=== PATIENT | male | born 1980 | race Caucasian/White ===

== ENCOUNTER → 2016-09-09 | Day surgery (SDC) | payer OTHER ==
[~2016-09-09] MED LIST: AMLO5TAB2 PO; BUPIVACAINE HCL PF 0.5% 30 ML VIAL ONE; CYCL5TAB PO; GABA300C5 PO; IBUP400T20 PO; LOSA25TA PO; MIDAZOLAM HCL 2 MG/2 ML VIAL IV ONE; MOBI15TA PO; PROPOFOL 200 MG/20 ML AMP IV ONE; TRIAMCINOLONE ACETONIDE 40 MG/ML VIAL I-ARTICULR ONE
--- NOTE | 2016-09-10 10:18 | M6 ---
cc: SHARYN RUSS M.D. DATE: 09/09/2016 DATE OF : 1980 PROCEDURE Fluoroscopically guided injection bilateral cervical facet joints (bilateral C2-3, C3-4, C4-5 facet joints). PROCEDURE NOTE History and physical was completed and signed. Consent was signed. Procedure site was marked. Medications were listed and reconciled. Pain score was recorded. Allergies were noted. Timeout was taken. Fluoroscopy time was recorded where applicable. Sedation was administered or directed by Dr. Russ. The patient was given oxygen. The patient was monitored by a registered nurse. Total procedure time was greater than 15 minutes. An IV was started, blood pressure cuff, pulse oximeter and EKG were applied. The patient was placed in the prone position on a Antolin table, sedated with small amounts of propofol titrated to effect. Vital signs were monitored and remained stable throughout the procedure. The cervical area was prepped with alcohol and 10% Betadine solution, draped with sterile drapes. Fluoroscopy was used to visualize the bilateral cervical facet joints at C3-4, C4-5 and C5-6. Separate sterile 3-1/2 inch, 25-gauge spinal needles were advanced into these joints under fluoroscopic guidance. There was negative aspiration for blood or any other type of fluid and at each location the patient was given 1 mL of 0.5% Marcaine which contained 10 mg of Kenalog. Following the procedure the patient was taken to the recovery room with stable vital signs, neurologically intact. He will be evaluated immediately and with follow-up to determine if he has a subjective decrease in his usual pain and a corresponding objective increase in his functional capabilities. W. Shaan Russ MD [facility] /8:33 AM /10:19 AM
== END | disposition home or self-care (01) ==
LOC: PHSDC 07:27
PROVIDERS: ATTEND Pain Medicine Interventional Pain Medicine
DX: M47.892 Other spondylosis, cervical region (principal); I10 Essential (primary) hypertension
CPT/HCPCS: 64490; 64491; 64492; 99152; J2250; J3301